=== PATIENT | female | born 1985 | race Caucasian/White ===

== ENCOUNTER 2016-11-17 16:22 | Emergency (ER) | payer OTHER ==
--- NOTE | 2016-11-17 17:03 | ED Physician Documentation ---
Abdominal Pain - HISTORIAN Historian: patient - HPI Stated Complaint: Left Lower Quad Discomfort Chief Complaint: Abdominal Pain Additonal Information: crampy pain LLQ, focal just medial to ASIS, TTP to light palpation, she also states she feels like she has to void more often. thinks she has UTI. no other symptoms. Her menses ended 7 days ago, she is regular every 26 days. for 5 days duration. she has cervical CA as a teen. her last prev PAP was 6 years ago. She first noticed yesterday, and when waking today, has hurt less thruout the day. Improved with ibuprofen. Onset: hours Duration: constant Timing: better Context: denies: out of country travel, bad food, recent trauma Severity: mild Quality: cramping Associated Symptoms: none. denies: fever, chills, nausea, diarrhea Exacerbated by: nothing Relieved by: nothing Further Comments: no - ROS CONST: no problems GI/: none CVS/RESP: none EYES/ENT: none MS/SKIN/LYMPH: none NEURO/PSYCH: none - SOCIAL HX Smoking History: non-smoker Alcohol Use: none Drug Use: none - FAMILY HX Family History: none - PAST HX Past History: none Ischemic Bowel Risk Factors: none Other History: other (cervical CA) Surgeries/Procedures: other (cervical leep) Home Medications: Ambulatory Orders Medication Instructions Recorded NK [NK] 11/17/16 Allergies/Adverse Reactions: Allergies Allergy/AdvReac Type Severity Reaction Status Date / Time No Known Allergies Allergy Verified 11/17/16 16:30 - VITAL SIGNS Vital Signs: Vital Signs Temp Pulse Resp BP Pulse Ox 97.5 F L 78 18 93/38 99 11/17/16 16:25 11/17/16 16:25 11/17/16 16:25 11/17/16 16:25 11/17/16 16:25 - REVIEWED ASSESSMENTS Nursing Assessment Reviewed: Yes Vitals Reviewed: Yes Progress - Results/Orders Results/Orders: her only symptom was crampy pain which is improving, her UA was neg for infection. Her exam was benign. We discussed the possiobilities. 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 but doesnt present like a musculoskeletal problem on exam. I dont think is urinary, may be reproductive but is mid-cycle, not even ovulating yet. Dooesn't have any GI symptoms. When I said I'd do some testing, she baulked, and said she would follow up with her dr. ED Results Lab/Radiology - Orders Orders: ED Orders Category Date Time Status UA W MICRO [UA W/MICRO IF INDICATED] Routine Lab 11/17/16 16:51 Ordered Abdominal Pain Physical Exam - Physical Exam General Appearance: no acute distress, alert RESPIRATORY: no resp distress ABDOMEN: soft, normal bowel sounds, no distension. No: rigid, mass (localized tenderness to palpation, verys uperficial, just medial to ASIS, no motion tenderness, no increased pain with bending, twisting or hip flexion.) BACK: normal inspection SKIN: warm/dry, normal color EXTREMITIES: non-tender, normal range of motion, no evidence of injury NEURO: oriented X3, mood/affect nml, cognition normal Vital Signs: Vital Signs Temp Pulse Resp BP Pulse Ox 97.5 F L 78 18 93/38 99 11/17/16 16:25 11/17/16 16:25 11/17/16 16:25 11/17/16 16:25 11/17/16 16:25 Discharge Clincal Impression: Abdominal pain Qualifiers: Abdominal location: left lower quadrant Qualified Code(s): R10.32 - Left lower quadrant pain Referrals: Primary Doctor,No [Primary Care Provider] - 2 Days Home Medications: Ambulatory Orders NK [NK] 11/17/16 Condition: Good Disposition: 01 HOME, SELF-CARE Decision to Admit: NO Date of Decison to Admit: 11/17/16 Decision Time: 17:02
[2016-11-17 17:12] VITALS: BP 101/68
[2016-11-18 08:28] LABS: APPEARANCE,URINE CLEAR (CLEAR); COLOR,URINE YELLOW (YELLOW); OCCULT BLOOD,URINE NEGATIVE (NEGATIVE); PH URINE 5.5 (5.0 - 8.0); UROBILINOGEN URINE 0.2 Eu (0.2-1.0)
== END 2016-11-17 17:10 | disposition home or self-care (01) ==
LOC: ED 16:22
DX: R10.32 Left lower quadrant pain (principal)
CPT/HCPCS: 81002; 99283

== ENCOUNTER 2017-10-01 10:22 | Emergency (ER) | payer OTHER ==
[2017-10-01 10:40] VITALS: BP 100/57
--- NOTE | 2017-10-01 10:50 | ED Physician Documentation ---
General Adult - HISTORIAN Historian: patient - HPI Stated Complaint: Sore throat Chief Complaint: General Adult Onset: days ago (1) Timing: still present Severity: moderate Further Comments: yes (Pt is a 32 yo female with cough & sore throat x 1 day. No fever, no n/v.) - ROS CONST: other (malaise) EYES/ENT: sore throat CVS/RESP: cough GI/: none MS/SKIN/LYMPH: none - PAST HX Past History: other (; tonsillectomy; ortho surgery) Allergies/Adverse Reactions: Allergies Allergy/AdvReac Type Severity Reaction Status Date / Time No Known Allergies Allergy Verified 10/01/17 10:40 Home Medications: Ambulatory Orders Medication Instructions Recorded NK [NK] 11/17/16 - SOCIAL HX Smoking History: non-smoker - FAMILY HX Family History: No - VITAL SIGNS Vital Signs: Vital Signs Temp Pulse Resp BP Pulse Ox 97.5 F L 61 17 100/57 98 10/01/17 10:25 10/01/17 10:25 10/01/17 10:25 10/01/17 10:25 10/01/17 10:25 - REVIEWED ASSESSMENTS Nursing Assessment Reviewed: Yes Vitals Reviewed: Yes Progress - Progress Progress: Rx Z-sheela. Use as directed on package. Rx Robitussin AC (with codeine). Take 10 ml by mouth every 4 to 6 hrs as needed for cough. May cause drowsiness. General Adult Physical Exam - PHYSICAL EXAM GENERAL APPEARANCE: no distress EENT: TM's nml, pharyngeal erythema NECK: normal inspection, thyroid normal, lymphadenopathy RESPIRATORY: no resp distress, chest non-tender, breath sounds normal, other ( cough) CVS: reg rate & rhythm, heart sounds normal ABDOMEN: soft, no organomegaly, normal bowel sounds BACK: normal inspection, no CVA tenderness SKIN: warm/dry, normal color EXTREMITIES: non-tender, normal range of motion, no evidence of injury NEURO: oriented X3, motor nml, sensation nml Discharge Clincal Impression: pharygitis; cough Referrals: Primary Doctor,No [Primary Care Provider] - 2 Days Condition: Good Disposition: 01 HOME, SELF-CARE Decision to Admit: NO Decision Time: 10:54
== END 2017-10-01 11:01 | disposition home or self-care (01) ==
LOC: ED 10:22
DX: J02.9 Acute pharyngitis, unspecified (principal); R05 Cough
CPT/HCPCS: 87070; 87880; 99283

== ENCOUNTER 2017-10-07 12:23 | Emergency (ER) | payer OTHER ==
--- NOTE | 2017-10-07 13:03 | ED Physician Documentation ---
Upper Extremity Problem - HISTORIAN Historian: patient - HPI Stated Complaint: R finger pain Chief Complaint: Upper Extremity Problem Additional Information: While swinging her hand hit the refrigerator and developed some immediate pain in the #rd ring finger. Believes that she hyperexended finger with injury. No previous injury noted. Patient denies any numbness. Is able to make a fist with hand. Location: R hand Onset: minutes (45 min) Timing: still present Duration: constant Where: home Severity: moderate Associated Symptoms: denies: fever, chills Relieved By: nothing Quality: pain, swelling, tenderness - ROS CONST: no problems - PAST HX Past History: none Other History: none Surgeries/Procedures: none, , other (r writ fracture, T&A) Immunizations: referred to PCP Allergies/Adverse Reactions: Allergies Allergy/AdvReac Type Severity Reaction Status Date / Time No Known Allergies Allergy Verified 10/07/17 12:33 Home Medications: Ambulatory Orders Medication Instructions Recorded NK [NK] 11/17/16 - SOCIAL HX Smoking History: non-smoker Alcohol Use: none Drug Use: none - FAMILY HX Family History: no significant history - VITAL SIGNS Vital Signs: Vital Signs Temp Pulse Resp BP Pulse Ox 98.1 F 60 17 97/50 96 10/07/17 12:30 10/07/17 12:30 10/07/17 12:30 10/07/17 12:30 10/07/17 12:30 - REVIEWED ASSESSMENTS Nursing Assessment Reviewed: Yes Vitals Reviewed: Yes ED Results Lab/Radiology - Orders Orders: ED Orders Category Date Time Status XRAY 3RD FINGER [FINGER 2 VIEWS OR MORE] [RAD] Stat Exams 10/07/17 Ordered Upper Extremity Problem - EXAM General Appearance: alert Wrist Exam: normal inspection, non-tender, no evidence of injury Hand Exam: limited ROM (3rd finger), swelling (PIP joint 3rd finger) Neuro/Tendon: normal sensation, normal motor functions, normal tendon functions , responds to pain Peripheral: sensation nml, motor nml Central: oriented X3, mood/affect nml, cognition normal Respiratory: no resp. distress, breath sounds nml Discharge Clincal Impression: Closed avulsion fracture of middle phalanx of finger Qualifiers: Encounter type: initial encounter Qualified Code(s): S62.629A - Displaced fracture of medial phalanx of unspecified finger, initial encounter for closed fracture Referrals: Jon Burden MD [Primary Care Provider] - 2 Days Additional Instructions: Keep finger in splint except to bath for two weeks. then You may get your finger out of the splint to do some range of motion with the finger. In 3-4 weeks may come out of splint. Cool compress to the finger for the next 1-2 days. Take Tylenol of Ibuprofen/Aleve as needed for pain. Condition: Stable Disposition: 01 HOME, SELF-CARE Decision to Admit: NO Date of Decison to Admit: 10/07/17 Decision Time: 13:52
--- NOTE | 2017-10-07 14:09 | Diagnostic Imaging Report ---
[facility] [address] [facility].[address] [address] Report Submission Date: October 07, 2017 1:35:13 PM CDT Patient Study Name: FRANDY MURRAY Date: October 07, 2017 1:03:16 PM CDT Modality Type: DX Gender: F Description: UPPER EXTREMITY : 83 Institution: [facility] Physician: IAIN JASMINE Examination: Plain film right finger. History: PT STATES PAIN IN RIGHT 3RD PIP AND DIP AREA TODAY (Hx) / ITS.REASON pain to right 3rd PIP and DIP area (DICOM Hx) / ITS.REASON pain to right 3rd PIP and DIP area (Pt comments) Comparison exams: None available Findings: 3 views the left 3rd digit demonstrates an osseous avulsion off the base of the mid phalanx 3rd digit. No other cortical abnormalities. Soft tissue swelling. Impression: Avulsion base mid phalanx 3rd digit. Electronically signed on October 07, 2017 1:35:13 PM CDT by: Ramakrishna PADILLA
[2017-10-07 14:11] VITALS: BP 102/54
== END 2017-10-07 14:10 | disposition home or self-care (01) ==
LOC: ED 12:23
DX: S62.629A Displaced fracture of middle phalanx of unspecified finger, initial encounter for closed fracture (principal); W23.1XXA Caught, crushed, jammed, or pinched between stationary objects, initial encounter; Y93.9 Activity, unspecified; Y92.9 Unspecified place or not applicable; Y99.9 Unspecified external cause status
CPT/HCPCS: 73140; 99283